=== PATIENT | male | born 1955 | race Caucasian/White ===

== ENCOUNTER → 2019-12-02 | Outpatient (CLI) | payer BC ==
--- NOTE | 2019-12-02 11:59 | CT ---
EXAMINATION TYPE: CT abdomen pelvis w con DATE OF EXAM: 12/02/2019 COMPARISON: None INDICATION: Sigmoid mass DLP: 1531.80 mGycm, Automated exposure control for dose reduction was used. CONTRAST: 100 ml mL of Isovue 300. Study performed with Oral Contrast TECHNIQUE: Axial images were obtained from above the diaphragm to the pubic rami in the axial plane a t 5 mm thick sections. Reconstructed images are reviewed on the computer in the coronal plane. FINDINGS: Limited CT sections are obtained the lung bases. The lung bases are clear. Small hiatal hernia is p resent. CT ABDOMEN: Liver: Normal Spleen: Normal Pancreas: Normal Adrenal glands: The adrenal glands are normal. Gallbladder: Normal Kidneys: No masses are evident. No hydronephrosis is present. No cysts are present. Delayed images were obtained through the kidneys, which remain unremarkable. Aorta: Normal Inferior vena cava: Normal. CT PELVIS: Loops of bowel within the abdomen visualized appear normal. Within the pelvis there is diffuse promin ent thickening through the mid sigmoid colon. Multiple diverticular changes are within the proximal s igmoid colon and descending colon. Fecal debris extends to the area of thickening. Underlying neoplas m should be considered. Significant inflammatory changes are not adjacent. Some mild adjacent inflamm atory change may be present superior to the sigmoid colon. Neoplasm is favored over diverticulitis. T here are loops of bowel which are incompletely distended or lack oral contrast limiting their evaluat ion. Appendix: Normal as visualized. Urinary bladder: Normal. Genitourinary structures: Prostate is moderately prominent. Osseous structures: Small sclerotic areas in the distal neck of the right femur. Sacroiliac joint deg enerative changes are present. Degenerative disc changes are within the lower lumbar spine. Facet deg enerative changes are in the lower lumbar spine. IMPRESSIONS: 1. Irregular moderate length segment of thickening of the proximal sigmoid colon with some minimal a djacent inflammatory change. Underlying neoplastic mass should be considered. Acute diverticulitis is considered less likely. A Yellow level critical message alert has been initiated for Giancarlo Conn MD~[id number] via the [employer] Critical Results System on 12/02/2019 11:56 AM. This message alert has been sent to Raul Conn MD~[id number] via the preferences provided by the clinician for the receipt of Radiology Criti iman Findings. Message ID [id number].
== END | disposition home or self-care (01) ==
LOC: RADCTMAIN 07:54
PROVIDERS: ATTEND Surgery
DX: K63.89 Other specified diseases of intestine (principal)
CPT/HCPCS: 74177; Q9967

== ENCOUNTER 2019-12-18 08:00 | Inpatient (IN) | payer BC ==
[2019-12-17 11:06] VITALS: BMI 28.2
[~2019-12-18 08:00] MED LIST: ACETAMINOPHEN TAB 500 MG TAB PO ONE; ALVIMOPAN 12 MG CAPSULE PO ONE; HEPARIN SODIUM,PORCINE 5,000 UNIT/ML 1 ML VIAL SQ ONE; ONDANSETRON 4 MG/2 ML VIAL IVP ONE; metroNIDAZOLE-NS PMX 500 MG in SALINE 1 100ML.BAG IVPB ONE
[2019-12-18] MEDS: LACTATED RINGERS 1,000 ML IV SCH (08:59)
[2019-12-18] MEDS ORDERED: LIDOCAINE 1% (10MG/ML) FOR IV START INTRADERMA ONE (08:59)
[2019-12-18] MEDS ORDERED: fentaNYL (PF) 50 MCG/ML 2 ML AMP IV ONE (09:19)
[2019-12-18] MEDS ORDERED: MIDAZOLAM 2 MG/2 ML VIAL IV ONE (09:19)
[2019-12-18] MEDS ORDERED: ATROPINE SULFATE 0.4 MG/ML 1 ML VIAL IV ONE (09:40)
[2019-12-18] MEDS ORDERED: DEXAMETHASONE SOD PHOSPHATE 10 MG/ML 1 ML VIAL IV ONE (09:50)
[2019-12-18] MEDS ORDERED: ePHEDrine SULFATE/0.9% NACL/PF 50 MG/5 ML SYRINGE IV ONE (10:11)
[2019-12-18] MEDS ORDERED: LIDOCAINE 1% INJ 10MG/ML (20 ML MDV) ONE (10:11)
[2019-12-18] MEDS ORDERED: NEOSTIGMINE 1 MG/ML 10 ML VIAL ONE (10:11)
[2019-12-18] MEDS ORDERED: ROCURONIUM BROMIDE 10 MG/ML 5 ML VIAL IV ONE (10:11)
[2019-12-18] MEDS ORDERED: fentaNYL (PF) 50 MCG/ML 2 ML AMP ONE (10:11)
[2019-12-18] MEDS ORDERED: GLYCOPYRROLATE 0.2 MG/ML 2 ML VIAL ONE (10:11)
[2019-12-18] MEDS ORDERED: MIDAZOLAM 2 MG/2 ML VIAL ONE (10:11)
[2019-12-18] MEDS ORDERED: PROPOFOL 10 MG/ML 20 ML VIAL IV ONE (10:11)
[2019-12-18] MEDS ORDERED: NALOXONE 0.4 MG/ML 1 ML VIAL IV PRN (10:16)
[2019-12-18] MEDS ORDERED: LACTATED RINGERS 1,000 ML IV ONE (11:41)
[2019-12-18] MEDS: ROPIVACAINE 250 MG, HYDROMORPHONE (PF) 5 MG in SODIUM CHLORIDE 0.9% 200 ML EPIDURAL PRN (13:36)
[2019-12-18] MEDS ORDERED: METOCLOPRAMIDE 5 MG/ML 2 ML VIAL IVP PRN (13:39)
[2019-12-18] MEDS ORDERED: HYDROmorphone 1 MG/ML 1 ML SYRINGE IVP PRN (13:39)
[2019-12-18] MEDS ORDERED: BENZOCAINE/MENTHOL LOZENG 1 EACH LOZENGE MUCOUS MEM PRN (13:39)
[2019-12-18] MEDS ORDERED: ONDANSETRON 4 MG/2 ML VIAL IVP PRN (13:39)
--- NOTE | 2019-12-18 13:45 | P.OP ---
Date of Procedure: 12/18/19 Procedure(s) Performed: PREOPERATIVE DIAGNOSIS: Sigmoid colon cancer POSTOPERATIVE DIAGNOSIS: Same PROCEDURE: Low anterior sigmoid resection SURGEON: Senia EBL: See anesthesia records ANESTHESIA: General COMPLICATIONS: None OPERATIVE PROCEDURE: Patient place in the operative table in the supine position. The patient was placed under general anesthesia. The patient was then placed in lithotomy. The abdomen was prepped and draped in usual sterile fashion. A vertical incision was made extending from the infraumbilical location to the suprapubic location. The fascia was divided as well. The Bookwalter retractor was utilized. The patient's tumor was clearly evident in the mid sigmoid colon. The tattooing was identified but the mass was easily palpable. It was loosely adherent to the pelvic sidewall and able to be mobilized with blunt dissection and a small amount of electrocautery. It was a dherent was to the posterior/inferior aspect of the left side of the bladder. No fistula was seen. The sigmoid colon was fully mobilized by incising the white line of Toldt. The left and right ureters were both identified and preserved. A site was chosen for division of the sigmoid colon proximally. A small colotomy was made distal to the anticipated resection site. The 29 EEA anvil was advanced into the lumen of the sigmoid colon and milked proximally. The bowel was then divided using a linear 75 stapler and the anvil was brought out adjacent to the staple line. A 3-0 silk pursestring suture was placed around the anvil at that location. The mesentery was divided using the LigaSure device and larger vessels were ligated using 0 silk ties. Dissection took place down to the proximal rectum where the tenia was noted to splay out. The proximal rectum was divided using the contour stapler. The specimen was passed off the field at that point. 2 small areas of bleeding along the staple line were controlled using 3-0 GI silk sutures. No signs of bleeding at either staple line was noted after irrigation. The stapler was then inserted into the anus and brought up to the staple line. The obturator was brought out just anterior to the staple line. The 2 portions of the stapler were connected to one another and subsequently tightened and fired. The bowel was clamped proxim al to the anastomosis. The rigid sigmoidoscope was utilized to fill the anastomotic site nicely with air. There was saline in the pelvis at this time. No evidence of leak was seen. The abdomen was irrigated with saline. The liver, stomach, visualized colon, and small bowel appeared normal. The midline fascia was then reapproximated using 2 separate double-stranded #1 PDS sutures. The subcutaneous tissues were closed using 3-0 Vicryl sutures. The skin was then closed using luz elena. Sterile dressings were then applied. DISPOSITION: Stable to recovery room
[2019-12-18] MEDS: HEPARIN SODIUM,PORCINE 5,000 UNIT/ML 1 ML VIAL SQ SCH ×2 (16:29→23:38)
[2019-12-18] MEDS: D5-0.45% NACL WITH KCL 20MEQ/L 1,000 ML IV SCH ×2 (16:50→23:38)
[2019-12-18 17:35] LABS: Basophils % (A) 0 %; Eosinophils # (A) 0.1 k/uL (0-0.7); Eosinophils % (A) 0 %; HCT 46.5 % (39.0-53.0); HGB 15.6 gm/dL (13.0-17.5); Lymphocytes # (A) 0.4 k/uL (1.0-4.8); Lymphocytes % (A) 3 %; MCH 27.2 pg (25.0-35.0); MCHC 33.7 g/dL (31.0-37.0); MCV 80.9 fL (80.0-100.0); Mean Platelet Volume 7.3; Monocytes # (A) 0.3 k/uL (0-1.0); Monocytes % (A) 2 %; Neutrophils # (A) 12.4 k/uL (1.3-7.7); Neutrophils % (A) 94 %; Platelet Count 255 k/uL (150-450); RBC 5.74 m/uL (4.30-5.90); RDW 13.5 % (11.5-15.5); WBC 13.2 k/uL (3.8-10.6)
[2019-12-18 17:42] LABS: African American GFR (CKD) >90 (>60 ml/min/1.73 sqM); Anion Gap 9 mmol/L; Blood Urea Nitrogen 7 mg/dL (9-20); Calcium 8.5 mg/dL (8.4-10.2); Carbon Dioxide 26 mmol/L (22-30); Chloride 101 mmol/L (98-107); Glucose 148 mg/dL (74-99); Non-African American GFR(CKD) >90 (>60 ml/min/1.73 sqM); Sodium 136 mmol/L (137-145)
[2019-12-18 20:43] LABS: HCT 45.5 % (39.0-53.0); HGB 15.2 gm/dL (13.0-17.5); MCHC 33.4 g/dL (31.0-37.0); MCV 80.9 fL (80.0-100.0); Mean Platelet Volume 7.5; Platelet Count 266 k/uL (150-450); RBC 5.63 m/uL (4.30-5.90); RDW 13.9 % (11.5-15.5); WBC 13.2 k/uL (3.8-10.6)
[2019-12-18] MEDS: FAMOTIDINE 20 MG/2 ML VIAL IV SCH (21:49)
[2019-12-19] MEDS: D5-0.45% NACL WITH KCL 20MEQ/L 1,000 ML IV SCH ×2 (07:55→15:21)
[2019-12-19] MEDS: FAMOTIDINE 20 MG/2 ML VIAL IV SCH ×2 (08:54→20:23)
[2019-12-19] MEDS: ALVIMOPAN 12 MG CAPSULE PO SCH ×2 (08:54→20:22)
[2019-12-19] MEDS: HEPARIN SODIUM,PORCINE 5,000 UNIT/ML 1 ML VIAL SQ SCH ×2 (08:54→15:23)
[2019-12-19] MEDS: LACTATED RINGERS 1,000 ML IV SCH (09:05)
--- NOTE | 2019-12-19 11:44 | ECHOF ---
Referral Reason:tachycardia MEASUREMENTS -------- HEIGHT: 182.9 cm WEIGHT: 97.5 kg BP: 154/78 RVIDd: 3.9 cm (< 3.3) IVSd: 1.1 cm (0.6 - 1.1) LVIDd: 5.2 cm (3.9 - 5.3) LVPWd: 1.3 cm (0.6 - 1.1) IVSs: 1.5 cm LVIDs: 3.5 cm LVPWs: 1.7 cm Ao Diam: 3.7 cm (2.0 - 3.7) AV Cusp: 2.5 cm (1.5 - 2.6) LA Diam: 4.5 cm (2.7 - 3.8) MV EXCURSION: 23.818 mm (> 18.000) MV EF SLOPE: 97 mm/s (70 - 150) EPSS: 0.4 cm MV E Carlos: 0.80 m/s MV DecT: 222 ms MV A Carlos: 0.88 m/s MV E/A Ratio: 0.91 RAP: 5.00 mmHg RVSP: 29.66 mmHg FINDINGS -------- Sinus rhythm. This was a technically good study. LV size, wall thickness and systolic function are normal, with an EF greater than 55%. The left faith tricular size is normal. The diastolic filling pattern is normal for the age of the patient 11.59. The right ventricle is normal in size. The left atrium is mildly dilated. The right atrial size is normal. The aortic valve is trileaflet, and appears structurally normal. No aortic stenosis or regurgitation. Mild mitral annular calcification present. Mild mitral regurgitation is present. Mild tricuspid regurgitation present. Right ventricular systolic pressure is normal at < 35 mmHg. There is no evidence of pulmonary hypertension. The pulmonic valve was not well visualized. The aortic root size is normal. There is no pericardial effusion. CONCLUSIONS -------- 1. Sinus rhythm. 2. This was a technically good study. 3. LV size, wall thickness and systolic function are normal, with an EF greater than 55%. 4. The left ventricular size is normal. 5. The diastolic filling pattern is normal for the age of the patient 11.59 6. The right ventricle is normal in size. 7. The left atrium is mildly dilated. 8. The right atrial size is normal. 9. The aortic valve is trileaflet, and appears structurally normal. No aortic stenosis or regurgitati on. 10. Mild mitral annular calcification present. 11. Mild mitral regurgitation is present. 12. Mild tricuspid regurgitation present. 13. Right ventricular systolic pressure is normal at < 35 mmHg. 14. There is no evidence of pulmonary hypertension. 15. The pulmonic valve was not well visualized. 16. The aortic root size is normal. 17. There is no pericardial effusion. POLYGRAPH OPERATOR: Rody Membreno RDCS
--- NOTE | 2019-12-19 12:20 | CONS ---
CONSULTATION CHIEF COMPLAINT: Tachycardia. This is a 64-year-old gentleman who was electively brought into hospital for colectomy secondary to colon cancer. In the postoperative setting patient developed sinus tachycardia, for which Cardiology has been consulted. There is no prior cardiac history. There is no history of coronary artery disease or congestive heart failure. Patient is fairly active physically and has not had any issues prior to surgery. At the time of my evaluation, his heart rate is normal and he does not have any cardiac symptoms. I am told that the patient's surgery went uneventfully and the patient has had epidural for several hours and after that developed tachycardia. Heart rates were in the 120s. I reviewed the rhythm strips. It seems to be sinus tachycardia. I do not have any EKG on him. His labs show that the hemoglobin is normal. Potassium is 4. Creatinine is 0.59 and BUN is 7. There is no evidence of anemia or intravascular volume depletion. The sinus tachycardia could be related to the epidural if he has had vasodilation, and in the absence of hypotension it is difficult to explain sinus tachycardia. Patient's oxygenation has been good. I am going to obtain an EKG on him and an echocardiogram, and if the wall motion is good, LV function is good, he does not require any further evaluation at this time. We may consider doing a stress test on him down the road. PAST MEDICAL HISTORY: Past medical history is negative for diabetes, hypertension, dyslipidemia. MEDICATIONS: He is not on any prescription medication. ALLERGIES: DAIRY PRODUCTS. FAMILY HISTORY: Significant for colon cancer in his father. His mother lives into 90s. REVIEW OF SYSTEMS: HEENT is unremarkable. CARDIAC: As described above. RESPIRATORY: Negative. GI: Significant for colon cancer, status post surgery. PSYCHOSOCIAL: Negative. ENDOCRINE: Negative. DERMATOLOGY: Negative. CONSTITUTIONAL: Negative. ONCOLOGICAL: Negative. SOD CUTTER: Negative. PHYSICAL EXAMINATION: Patient is comfortable at rest. Heart rate is 74 beats per minute, blood pressure 154/78, respiratory rate 18. Chest exam reveals good air entry bilaterally. Heart exam reveals first and second heart sounds. No gallop. No murmur. Abdomen is soft, status post surgery. Examination of extremities did not reveal any edema. Peripheral pulses are felt. ASSESSMENT: Sinus tachycardia of unclear etiology. I am going to obtain an EKG and echocardiogram. It could be related to the anesthesia. It could be related to the postoperative pain. If the echo looks normal, no further workup at this time. Thank you for giving me the privilege of participating in the care of this nice gentleman. MARIA L / ROBINSONN: [id number] /
--- NOTE | 2019-12-19 13:30 | P.CONS ---
History of Present Illness - Reason for Consult Consult date: 12/19/19 Medical management Requesting physician: Giancarlo Conn - Chief Complaint Elective large bowel resection for colon cancer - History of Present Illness 64-year-old male awake alert oriented 3 status post low anterior resection for sigmoid colon cancer On exam patient is up in the chair tolerating diet watching TV, using incentive spirometer as recommended Incision is clean and dry , op note suggests no gross evidence of metastasis waiting on the final pathology Review of Systems Constitutional: Reports as per HPI Ears, nose, mouth and throat: Reports as per HPI Cardiovascular: Reports as per HPI Respiratory: Reports as per HPI Gastrointestinal: Reports as per HPI (Bowel resection secondary to known family history father at 40 secondary to colon cance sister had a resection secondary to colon cancer), Reports diarrhea Genitourinary: Reports as per HPI Musculoskeletal: Reports as per HPI Musculoskeletal: right: foot swelling Integumentary: Reports as per HPI Neurological: Reports as per HPI Psychiatric: Reports as per HPI Past Medical History Past Medical History: Cancer Additional Past Medical History / Comment(s): COLON CANCER, VEGETARIAN DIET, STATES CONSTIPATION IN THE PAST WITH PAIN MEDICATION., MONITORS THYROID ., ELEVATED PSA. Patient had been doing regular colostomy screening with known family history of colon cancer father and sister History of Any Multi-Drug Resistant Organisms: None Reported Past Surgical History: Hernia Repair Additional Past Surgical History / Comment(s): DOUBLE INGUINAL HERNIA (2011) Past Anesthesia/Blood Transfusion Reactions: No Reported Reaction Past Psychological History: No Psychological Hx Reported Smoking Status: Never smoker Past Alcohol Use History: None Reported Past Drug Use History: None Reported - Past Family History Father Family Medical History: Cancer Additional Family Medical History / Comment(s): FROM COLON CANCER AT AGE 49. Medications and Allergies Home Medications Medication Instructions Recorded Confirmed Type Ascorbic Acid [Vitamin C] 500 mg PO DAILY 12/17/19 12/18/19 History Calcium Lactate 2 tab PO DAILY 12/17/19 12/18/19 History Chondroitin Sulfate 250 mg PO BID 12/17/19 12/18/19 History Fucothin Seaweed Supplement 1 tab PO DAILY 12/17/19 12/18/19 History L.acidoph,Paracasei, B.lactis 1 each PO DAILY 12/17/19 12/18/19 History [Probiotic] Liquid Vitamin C Pack 1,000 mg PO DAILY 12/17/19 12/18/19 History Magnesium Pot Asp. Taurine 1 tab PO DAILY 12/17/19 12/18/19 History Multivit-Min/FA/Lycopen/Lutein 1 each PO DAILY 12/17/19 12/18/19 History [Centrum Silver Men Tablet] Zinc Aspartate 1 tab PO DAILY 12/17/19 12/18/19 History Allergies Allergy/AdvReac Type Severity Reaction Status Date / Time Milk Containing Products Allergy Unknown Sinus Verified 12/18/19 08:34 [Dairy] Congestion, Difficulty Breathing Physical Exam Osteopathic Statement: *. No significant issues noted on an osteopathic structural exam other than those noted in the History and Physical/Consult. Vitals: Vital Signs Temp Pulse Resp BP Pulse Ox 12/19/19 07:42 97.7 F 74 20 154/78 96 12/19/19 03:52 18 12/19/19 01:40 98.3 F 103 H 18 130/73 94 L 12/18/19 23:38 18 12/18/19 19:10 98 F 116 H 18 145/81 95 12/18/19 18:00 120 H 142/86 94 L 12/18/19 17:45 122 H 168/103 96 12/18/19 17:30 113 H 158/80 12/18/19 17:15 112 H 144/80 93 L 12/18/19 17:00 109 H 150/75 94 L 12/18/19 16:45 109 H 156/83 94 L 12/18/19 16:30 107 H 154/90 94 L 12/18/19 16:15 108 H 149/78 95 12/18/19 16:00 98.1 F 102 H 18 148/83 95 12/18/19 15:30 96 16 133/97 96 12/18/19 15:00 100 16 132/90 95 12/18/19 14:30 90 16 147/75 94 L 12/18/19 14:02 84 16 140/78 92 L 12/18/19 13:47 86 16 142/75 97 12/18/19 13:32 86 16 141/79 96 12/18/19 13:17 97.9 F 72 16 144/78 100 Intake and Output 12/18/19 12/19/19 12/19/19 22:59 06:59 14:59 Output Total 3000 1560 Balance -3000 -1560 Output: Urine 3000 1560 Uretheral (Pappas) 1560 Other: Voiding Method Indwelling Catheter Indwelling Catheter Indwelling Catheter Weight 97.9 kg General: [Patient awake, alert and oriented times 3. Patient in no acute distress.] HEENT: [PERRL. EOMI. No pharyngeal erythema or exudate.] Neck: [No adenopathy.] Cardiac: [Heart regular in rate and rhythm. No S3. No S4. No clicks, rubs. No murmur.] Lungs: [Clear to auscultation bilaterally.] Abdomen: [No mass. No organomegaly. Bowel sounds presnt and normoactive in all 4 quadrants. abdominal laparotomy incision clean and dry Extremes: [No edema no cyanosis no claudication normal pulses] : Normal male genitalia Musculoskeletal: [No joint erythema, edema or tenderness.] Skin: [No rash.] Neurologic: [No lateralizing deficits. CN II - XII grossly intact.] Lymphatic: [No adenopathy.] Results CBC & Chem 7: 12/18/19 19:58 12/18/19 16:57 Labs: Abnormal Lab Results - Last 24 Hours (Table) 12/18/19 12/18/19 12/18/19 Range/Units 16:57 16:57 19:58 WBC 13.2 H 13.2 H (3.8-10.6) k/uL Neutrophils # 12.4 H (1.3-7.7) k/uL Lymphocytes # 0.4 L (1.0-4.8) k/uL Sodium 136 L (137-145) mmol/L BUN 7 L (9-20) mg/dL Creatinine 0.59 L (0.66-1.25) mg/dL Glucose 148 H (74-99) mg/dL Assessment and Plan (1) Cancer of sigmoid colon Current Visit: Yes Status: Acute Code(s): C18.7 - MALIGNANT NEOPLASM OF SIGMOID COLON SNOMED Code(s): 299405146 Plan: Postoperative day one Status post low anterior resection of sigmoid colon secondary to colon cancer Patient is up in chair doing very well Epidural in place, Pappas in place We will reevaluate in the morning Time with Patient: Greater than 30
--- NOTE | 2019-12-19 14:15 | PN ---
PROGRESS NOTE CHIEF COMPLAINT: Sigmoid cancer. SUBJECTIVE: The patient was tachycardic postoperatively yesterday evening. EKG showed some changes. Spoke with Cardiology. They are not overly concerned. Echo is pending for this morning. His tachycardia has improved. No labs from today; however, he had CBC done twice yesterday showing mild leukocytosis with a stable hemoglobin. Urine output is clear and adequate in volume. Denies pain. Epidural running at 6. OBJECTIVE: ABDOMEN: Soft, nondistended. Mild tenderness. Dressing clean and dry. ASSESSMENT: [id number]-old male post low anterior resection for sigmoid colon cancer. PLAN: 1. Keep him on clear liquid, but will advance diet tomorrow. 2. Increase activity today. 3. Await echocardiogram. 4. Recheck labs tomorrow. MMODL / IJN: [id number] /
[2019-12-19] MEDS: ROPIVACAINE 250 MG, HYDROMORPHONE (PF) 5 MG in SODIUM CHLORIDE 0.9% 200 ML EPIDURAL PRN (16:27)
--- NOTE | 2019-12-19 16:36 | P.PN ---
Progress Note - Text Progress Note Date: 12/19/19 POD 1 from colectomy. He is doing very well. I was asked to the see the patient yesterday evening for tachycardia. patient was asymptomatic and had HR of 100 at the time, no mental status changes with the infusion at 8cc/hr. Pain was 1/10, non tender to palpation over the abdomen. Today, awake, alert, ambulating, no lower ext pain or weakness. site is clear and dry. able to urinate. pain 1/10. continue catheter until saturday. solution running at 6cc/hr
[2019-12-20] MEDS: HEPARIN SODIUM,PORCINE 5,000 UNIT/ML 1 ML VIAL SQ SCH ×4 (00:10→22:51)
[2019-12-20] MEDS: LACTATED RINGERS 1,000 ML IV SCH (00:11)
[2019-12-20] MEDS: D5-0.45% NACL WITH KCL 20MEQ/L 1,000 ML IV SCH ×3 (00:11→15:25)
--- NOTE | 2019-12-20 06:44 | P.PN ---
Progress Note - Text Progress Note Date: 12/20/19 POD 2, cath day 3 from colectomy. Doing well, no pain at rest, 3/10 with movement in the abdomen. No lower ext weakness, able to ambulate. no altered mental status or pruritis. continue catheter until tomorro if he is in patient. continue at 6cc/hr anesthesia with questions please.
[2019-12-20 07:19] LABS: Basophils % (A) 0 %; Eosinophils # (A) 0.1 k/uL (0-0.7); Eosinophils % (A) 2 %; HGB 15.4 gm/dL (13.0-17.5); Lymphocytes # (A) 2.1 k/uL (1.0-4.8); Lymphocytes % (A) 23 %; MCH 26.6 pg (25.0-35.0); MCHC 32.1 g/dL (31.0-37.0); MCV 82.8 fL (80.0-100.0); Mean Platelet Volume 7.3; Monocytes # (A) 0.7 k/uL (0-1.0); Monocytes % (A) 7 %; Neutrophils % (A) 66 %; Platelet Count 238 k/uL (150-450); RDW 14.1 % (11.5-15.5); WBC 9.1 k/uL (3.8-10.6)
[2019-12-20 07:32] LABS: African American GFR (CKD) >90 (>60 ml/min/1.73 sqM); Anion Gap 7 mmol/L; Blood Urea Nitrogen 6 mg/dL (9-20); Calcium 8.9 mg/dL (8.4-10.2); Carbon Dioxide 28 mmol/L (22-30); Chloride 104 mmol/L (98-107); Glucose 114 mg/dL (74-99); Non-African American GFR(CKD) >90 (>60 ml/min/1.73 sqM); Potassium 4.7 mmol/L (3.5-5.1); Sodium 139 mmol/L (137-145)
[2019-12-20] MEDS: ALVIMOPAN 12 MG CAPSULE PO SCH ×2 (08:02→20:32)
--- NOTE | 2019-12-20 10:20 | P.PN ---
Subjective Progress Note Date: 12/20/19 Principal diagnosis: Sigmoid colon cancer Patient doing fairly well today. Mildly bloated compared to yesterday. No flatus or bowel movement. Denies nausea or vomiting. He has been drinking approximately 60 ounces of liquids per day. Describe some cramps when he is given his Pepcid. He would like the Pepcid discontinued. Good urine output. White blood cell count normal with hemoglobin stable at 15.4. Objective - Vital Signs Vital signs: Vital Signs Temp 98.3 F 12/20/19 07:00 Pulse 78 12/20/19 07:00 Resp 20 12/20/19 07:00 BP 145/85 12/20/19 07:00 Pulse Ox 96 12/20/19 07:00 Intake & Output 12/19/19 12/20/19 12/20/19 18:59 06:59 18:59 Intake Total 400 Output Total 4400 3800 840 Balance -4400 -3400 -840 Intake: Oral 400 Output: Urine 4400 3800 840 Uretheral (Pappas) 4400 840 Other: Voiding Method Indwelling Catheter Indwelling Catheter Indwelling Catheter # Voids 1 - Exam Abdomen: Soft, mildly distended, dressing clean and dry, minimal tenderness - Labs CBC & Chem 7: 12/20/19 06:54 12/20/19 06:54 Labs: Abnormal Lab Results - Last 24 Hours (Table) 12/20/19 Range/Units 06:54 BUN 6 L (9-20) mg/dL Glucose 114 H (74-99) mg/dL Assessment and Plan (1) Cancer of sigmoid colon Narrative/Plan: Patient overall doing fairly well. I do think he is slightly distended today. Will continue on liquids only. Patient discouraged from drinking quite as much as he had been. Ambulate. Plan on removing Pappas and epidural tomorrow. Decrease IV fluid rate today to 75 mL per hour. We'll discontinue Pepcid as well. Continue Entereg. Will call the patient's by phone with an update. Current Visit: Yes Status: Acute Code(s): C18.7 - MALIGNANT NEOPLASM OF S IGMOID COLON SNOMED Code(s): 259600066
[2019-12-20] MEDS: FAMOTIDINE 20 MG/2 ML VIAL IV SCH (10:25)
--- NOTE | 2019-12-20 11:39 | CONS ---
CONSULTATION This is a 64-year-old gentleman that we were consulted due to tachycardia. This morning, patient is doing well, free of symptoms. Heart rate is 78 beats per minute. Blood pressure is 140/85, respiratory rate 18. Chest exam reveals good air entry bilaterally. Heart exam reveals first and second heart sounds. No gallop. Exam of extremities did not reveal any edema. Peripheral pulses are felt. The patient had an echocardiogram and that showed normal LV systolic function without any evidence of significant wall motion abnormalities or valvular heart disease. ASSESSMENT: Sinus tachycardia, probably related to the perioperative state, anesthesia or other medication. He is doing well. Echo looks normal. No further cardiac workup at this time. We will see him on an as-needed basis. I advised him to follow up with me after discharge and I might consider doing a stress test on him. MMODL / IJN: [id number] /
--- NOTE | 2019-12-20 12:10 | P.PN ---
Subjective Progress Note Date: 12/20/19 Principal diagnosis: Elective large bowel resection colon cancer 64-year-old patient status post postop day 2 anterior resection for colon cancer Patient is alert and oriented 3, sitting up in chair, resting comfortably. Has no complaints at this time, pain is controlled epidural and is up ambulating through the hallway as of this morning. Utilizing his incentive spirometry routine basis. Incision is clean and dry, mild tenderness to the abdomen with palpation. Per surgery note we'll keep Pappas catheter and epidural until tomorrow. Objective - Vital Signs Vital signs: Vital Signs Temp 98.3 F 12/20/19 07:00 Pulse 78 12/20/19 07:00 Resp 20 12/20/19 07:00 BP 145/85 12/20/19 07:00 Pulse Ox 96 12/20/19 07:00 Intake & Output 12/19/19 12/20/19 12/20/19 18:59 06:59 18:59 Intake Total 400 Output Total 4400 3800 840 Balance -4400 -3400 -840 Intake: Oral 400 Output: Urine 4400 3800 840 Uretheral (Pappas) 4400 840 Other: Voiding Method Indwelling Catheter Indwelling Catheter Indwelling Catheter # Voids 1 - Exam GENERAL: Well-appearing, well-nourished and in no acute distress. HEAD: Atraumatic, normocephalic. EYES: Pupils equal round and reactive to light, extraocular movements intact, s clera anicteric, conjunctiva are normal. ENT:nares patent, oropharynx clear without exudates. Moist mucous membranes. NECK: Normal range of motion, supple without lymphadenopathy or JVD, no thyromegaly LUNGS: Breath sounds clear to auscultation bilaterally and equal. No wheezes rales or rhonchi. HEART: Regular rate and rhythm without murmurs, rubs or gallops.S1S2 Normal ABDOMEN: Soft, mildly tender to palpation, normoactive bowel sounds. No guarding, no rebound. No masses appreciated. EXTREMITIES: Normal range of motion, no pitting or edema. No clubbing or cyanosis. NEUROLOGICAL: Cranial nerves II through XII grossly intact. Normal speech, normal gait. PSYCH: Normal mood, normal affect. SKIN: Warm, Dry, normal turgor, no rashes or lesions noted. - Labs CBC & Chem 7: 12/20/19 06:54 12/20/19 06:54 Labs: Abnormal Lab Results - Last 24 Hours (Table) 12/20/19 Range/Units 06:54 BUN 6 L (9-20) mg/dL Glucose 114 H (74-99) mg/dL Assessment and Plan (1) Cancer of sigmoid colon Current Visit: Yes Status: Acute Code(s): C18.7 - MALIGNANT NEOPLASM OF SIGMOID COLON SNOMED Code(s): 793139690 Plan: Patient status postoperative day 2 for anterior resection of sigmoid colon Patient up in chair resting comfortably Continue ambulation and incentive spirometry Pappas catheter and epidural be reevaluated tomorrow Time with Patient: Greater than 30
[2019-12-21] MEDS: LACTATED RINGERS 1,000 ML IV SCH (02:08)
[2019-12-21] MEDS: D5-0.45% NACL WITH KCL 20MEQ/L 1,000 ML IV SCH ×2 (02:08→15:25)
[2019-12-21] MEDS: HEPARIN SODIUM,PORCINE 5,000 UNIT/ML 1 ML VIAL SQ SCH ×2 (07:39→15:25)
[2019-12-21] MEDS: ALVIMOPAN 12 MG CAPSULE PO SCH ×2 (07:39→20:03)
[2019-12-21] MEDS ORDERED: HYDROcodone/APAP 5-325MG 1 EACH TAB PO PRN (09:42)
[2019-12-21] MEDS ORDERED: ACETAMINOPHEN TAB 325 MG TAB PO PRN (10:19)
--- NOTE | 2019-12-21 10:20 | P.PN ---
<Emilee Dexter Rosa - Last Filed: 12/21/19 10:16> Subjective Progress Note Date: 12/21/19 CHIEF COMPLAINT: Sigmoid colon cancer HISTORY OF PRESENT ILLNESS: 64-year-old male who is status post low anterior sigmoid resection. Postoperative day #3. Patient examined this morning the bedside. Patient's epidural and Pappas catheter were discontinued overnight. He denies pain at this time. He has been voiding this morning without difficulty. He reports improvement in abdominal bloating. Tolerating full liquid diet. He is passing flatus. He reports a very small amount of clear drainage with some blood from his rectum, but no bowel movement thus far. Vitals stable. He is a febrile. PHYSICAL EXAM: VITAL SIGNS: Reviewed. GENERAL: Well-developed in no acute distress. HEENT: No sclera icterus. Extraocular movements grossly intact. Moist buccal mucosa. Head is atraumatic, normocephalic. ABDOMEN: Soft. Nondistended. Nontender. Dressing clean dry and intact. Abdominal binder noted. NEUROLOGIC: Alert and oriented. Cranial nerves II through XII grossly intact. ASSESSMENT: 1. Sigmoid colon cancer PLAN: -Continue full liquid diet. Await bowel movement -Pain control. Will add Tylenol and [place] when necessary -Incentive spirometry -Increase activity as tolerated Nurse practitioner note has been reviewed by physician. Signing provider agrees with the documented findings, assessment, and plan of care. Objective - Vital Signs Vital signs: Vital Signs Temp 98.7 F 12/21/19 07:00 Pulse 85 12/21/19 08:00 Resp 16 12/21/19 08:00 BP 146/81 12/21/19 07:00 Pulse Ox 97 12/21/19 07:00 Intake & Output 12/20/19 12/21/19 12/21/19 18:59 06:59 18:59 Intake Total 600 1520 Output Total 840 1800 Balance -240 -280 Intake: IV 600 D5-0.45% NaCl with KCl 600 20Meq/l 1,000 ml @ 75 mls /hr IV .[id number] [facility] Rx#: [id number] Intake, IV Titration 900 Amount D5-0.45% NaCl with KCl 900 20Meq/l 1,000 ml @ 75 mls /hr IV .[id number] [facility] Rx#: [id number] Oral 620 Output: Urine 840 1800 Uretheral (Pappas) 840 1800 Other: Voiding Method Indwelling Catheter Indwelling Catheter Toilet - Labs CBC & Chem 7: 12/20/19 06:54 12/20/19 06:54 <Giancarlo Conn - Last Filed: 12/21/19 14:25> Subjective As above. Patient doing well today. Passing flatus. No bloating or nausea. Will advance diet. Ambulate. Hopefully discharge tomorrow. Objective - Vital Signs Vital signs: Vital Signs Temp 98.7 F 12/21/19 07:00 Pulse 85 12/21/19 08:00 Resp 16 12/21/19 08:00 BP 146/81 12/21/19 07:00 Pulse Ox 97 12/21/19 07:00 Intake & Output 12/20/19 12/21/19 12/21/19 18:59 06:59 18:59 Intake Total 600 1520 Output Total 840 1800 Balance -240 -280 Intake: IV 600 D5-0.45% NaCl with KCl 600 20Meq/l 1,000 ml @ 75 mls /hr IV .[id number] [facility] Rx#: [id number] Intake, IV Titration 900 Amount D5-0.45% NaCl with KCl 900 20Meq/l 1,000 ml @ 75 mls /hr IV .[id number] [facility] Rx#: [id number] Oral 620 Output: Urine 840 1800 Uretheral (Pappas) 840 1800 Other: Voiding Method Indwelling Catheter Indwelling Catheter Toilet - Labs CBC & Chem 7: 12/20/19 06:54 12/20/19 06:54 Assessment and Plan (1) Cancer of sigmoid colon Current Visit: Yes Status: Acute Code(s): C18.7 - MALIGNANT NEOPLASM OF SIGMOID COLON SNOMED Code(s): 810609478
[2019-12-21 14:47] VITALS: RESP 18
--- NOTE | 2019-12-21 16:28 | P.PN ---
Subjective Progress Note Date: 12/21/19 this is 64-year-old gentleman status post low anterior sigmoid resection secondary to sigmoid colon cancer.Pappas catheter taken out yesterday with sufficient spontaneous urine output without difficulty.epidural discontinued last night, reports no pain currently. Passing flatus, no bowel movement. Incentive spirometer up to 1500. Recently advanced to full liquid diet. Denies nausea or vomiting.afebrile.denies chest pain, palpitations or shortness of breath. Denies lightheadedness, dizziness or focal deficits. Objective - Vital Signs Vital signs: Vital Signs Temp 98.3 F 12/21/19 14:47 Pulse 94 12/21/19 14:47 Resp 18 12/21/19 14:47 BP 136/81 12/21/19 14:47 Pulse Ox 96 12/21/19 14:47 Intake & Output 12/20/19 12/21/19 12/21/19 18:59 06:59 18:59 Intake Total 600 1520 75 Output Total 840 1800 Balance -240 -280 75 Intake: IV 600 D5-0.45% NaCl with KCl 600 20Meq/l 1,000 ml @ 75 mls /hr IV .[id number] [facility] Rx#: [id number] Intake, IV Titration 900 75 Amount D5-0.45% NaCl with KCl 900 75 20Meq/l 1,000 ml @ 75 mls /hr IV .[id number] [facility] Rx#: [id number] Oral 620 Output: Urine 840 1800 Uretheral (Pappas) 840 1800 Other: Voiding Method Indwelling Catheter Indwelling Catheter Toilet - Exam PHYSICAL EXAM: VITAL SIGNS: [as above] GENERAL: sitting up in bed, no acute distress HEENT: Conjunctivae normal. eyes normal. oral mucosa moist NECK: No JVD. No thyroid enlargement. No LNs CARDIOVASCULAR: S1, S2 regular.. No murmur RESPIRATION: Breath sounds diminished in the bases. No rhonchi or crackles. No wheezing ABDOMEN: Soft,nondistended, status post surgery. dressing clean dry and intact/abdominal binder present.Bowel sounds heard. LEGS: No edema. no swelling PSYCHIATRY: Alert and oriented X3, mood and affect normal. NERVOUS SYSTEM: Cranial N 2-12 grossly normal. Moves all 4 limbs. No focal deficits. Strength and sensation grossly intact.. Skin: no rash - Labs CBC & Chem 7: 03/15/20 06:54 12/20/19 06:54 Assessment and Plan Assessment: low anterior sigmoid resection secondary to sigmoid colon cancer family history of colon CA plan: Continue on current medication regime ,monitoring and symptomatic treatment. Pain management/diet advancement as per surgery. Increase ambulation as tolerated. Aggressive pulmonary toileting with incentive spirometer reinforced.further recommendations to follow. The impression and plan of care has been dictated as directed. : I performed a history and examination of this patient, discussed the same with the dictator. I agree with the dictator's note ,documented as a scribe. Any additional findings or plans will be noted.
[2019-12-21] MEDS: KETOROLAC 30 MG/ML 1 ML VIAL IVP SCH (18:02)
[2019-12-22] MEDS: KETOROLAC 30 MG/ML 1 ML VIAL IVP SCH ×2 (00:37→03:45)
[2019-12-22] MEDS: HEPARIN SODIUM,PORCINE 5,000 UNIT/ML 1 ML VIAL SQ SCH ×2 (00:38→08:08)
[2019-12-22] MEDS: LACTATED RINGERS 1,000 ML IV SCH (03:44)
[2019-12-22] MEDS: ALVIMOPAN 12 MG CAPSULE PO SCH (08:08)
--- NOTE | 2019-12-22 11:02 | P.PN ---
<Emilee Dexter - Last Filed: 12/22/19 11:00> Subjective Progress Note Date: 12/22/19 CHIEF COMPLAINT: Sigmoid colon cancer HISTORY OF PRESENT ILLNESS: 64-year-old male who is status post low anterior sigmoid resection. Postoperative day #4. Patient examined this morning the bedside. Patients pain is tolerable. Tolerating diet. Denies nausea or vomiting. Pasing flatus. No bowel movement thus far. Vitals stable. He is afebrile. PHYSICAL EXAM: VITAL SIGNS: Reviewed. GENERAL: Well-developed in no acute distress. HEENT: No sclera icterus. Extraocular movements grossly intact. Moist buccal mucosa. Head is atraumatic, normocephalic. ABDOMEN: Soft. Nondistended. Nontender. Dressing clean dry and intact. NEUROLOGIC: Alert and oriented. Cranial nerves II through XII grossly intact. ASSESSMENT: 1. Sigmoid colon cancer PLAN: -Continue current diet. Await bowel movement -Pain control -Incentive spirometry -Increase activity as tolerated -Possible discharge home this afternoon after patient is re-evaluated by Dr. Conn Nurse practitioner note has been reviewed by physician. Signing provider agrees with the documented findings, assessment, and plan of care. Objective - Vital Signs Vital signs: Vital Signs Temp 98.7 F 12/22/19 07:00 Pulse 103 H 12/22/19 08:00 Resp 18 12/22/19 08:00 BP 145/84 12/22/19 07:00 Pulse Ox 95 12/22/19 07:00 Intake & Output 12/21/19 12/22/19 12/22/19 18:59 06:59 18:59 Intake Total 75 Balance 75 Intake: Intake, IV Titration 75 Amount D5-0.45% NaCl with KCl 75 20Meq/l 1,000 ml @ 75 mls /hr IV .[id number] [facility] Rx#: [id number] Other: Voiding Method Toilet Toilet Toilet # Voids 1 - Labs CBC & Chem 7: 12/20/19 06:54 12/20/19 06:54 <Giancarlo Conn - Last Filed: 12/22/19 15:36> Objective - Vital Signs Vital signs: Vital Signs Temp 98.7 F 12/22/19 07:00 Pulse 84 12/22/19 15:24 Resp 18 12/22/19 08:00 BP 145/84 12/22/19 07:00 Pulse Ox 95 12/22/19 07:00 Intake & Output 12/21/19 12/22/19 12/22/19 18:59 06:59 18:59 Intake Total 75 Balance 75 Intake: Intake, IV Titration 75 Amount D5-0.45% NaCl with KCl 75 20Meq/l 1,000 ml @ 75 mls /hr IV .[id number] [facility] Rx#: [id number] Other: Voiding Method Toilet Toilet Toilet # Voids 1 3 # Bowel Movements 1 - Labs CBC & Chem 7: 12/20/19 06:54 12/20/19 06:54 Assessment and Plan (1) Cancer of sigmoid colon Current Visit: Yes Status: Acute Code(s): C18.7 - MALIGNANT NEOPLASM OF SIGMOID COLON SNOMED Code(s): 825383682
--- NOTE | 2019-12-22 15:37 | P.DS ---
Providers Date of admission: 12/18/19 08:13 Expected date of discharge: 12/22/19 Attending physician: Giancarlo Conn Consults: 12/18/19 13:39 Consult Physician Routine Consulting Provider: William Vasquez Consult Reason/Comments: Medical management Do you want consulting provider notified?: Yes 12/18/19 20:56 Consult Physician Stat Consulting Provider: Shane Chery Consult Reason/Comments: Abnomal EKG Do you want consulting provider notified?: Yes Primary care physician: William Vasquez - Discharge Diagnosis(es) (1) Cancer of sigmoid colon Patient admitted for elective sigmoid resection for malignancy. Underwent low anterior resection and has done well. Patient is anxious to go home today. Heart rate earlier was 10 3 repeat after he was ambulating to the bathroom was 108 however he says he feels normal. Not taking any pain medications. Had both flatus and bowel movements today. No nausea or vomiting. Denies bloating. No fevers. Last white blood cell count normal. Pulse was checked by myself and it is currently 84. Abdomen soft, nondistended, nontender, dressing clean and dry. We'll change abdominal dressing. Will plan discharge today. Tylenol and Motrin for pain. Follow-up one week. Continue low fiber diet. Current Visit: Yes Status: Acute Plan - Discharge Summary Discharge Rx Participant: No New Discharge Prescriptions: New Hydrocodone/Acetaminophen [[place] 5-325] 1 tab PO Q6HR PRN #10 tab PRN Reason: Pain No Action Multivit-Min/FA/Lycopen/Lutein [Centrum Silver Men Tablet] 1 each PO DAILY L.acidoph,Paracasei, B.lactis [Probiotic] 1 each PO DAILY Ascorbic Acid [Vitamin C] 500 mg PO DAILY Calcium Lactate 2 tab PO DAILY Zinc Aspartate 1 tab PO DAILY Chondroitin Sulfate 250 mg PO BID Liquid Vitamin C Pack 1,000 mg PO DAILY Magnesium Pot Asp. Taurine 1 tab PO DAILY Fucothin Seaweed Supplement 1 tab PO DAILY Discharge Medication List Ascorbic Acid [Vitamin C] 500 mg PO DAILY 12/17/19 [History] Calcium Lactate 2 tab PO DAILY 12/17/19 [History] Chondroitin Sulfate 250 mg PO BID 12/17/19 [History] Fucothin Seaweed Supplement 1 tab PO DAILY 12/17/19 [History] L.acidoph,Paracasei, B.lactis [Probiotic] 1 each PO DAILY 12/17/19 [History] Liquid Vitamin C Pack 1,000 mg PO DAILY 12/17/19 [History] Magnesium Pot Asp. Taurine 1 tab PO DAILY 12/17/19 [History] Multivit-Min/FA/Lycopen/Lutein [Centrum Silver Men Tablet] 1 each PO DAILY 12/17/19 [History] Zinc Aspartate 1 tab PO DAILY 12/17/19 [History] Hydrocodone/Acetaminophen [[place] 5-325] 1 tab PO Q6HR PRN #10 tab 12/21/19 [Rx] Follow up Appointment(s)/Referral(s): Giancarlo Conn MD [Medical Doctor] - 1 Week Activity/Diet/Wound Care/Special Instructions: No driving while taking [place] No lifting over 10 pounds You may shower. No soaking or tub baths Very light activity until you are reevaluated at your follow up appointment with your surgeon
[2019-12-22 16:09] VITALS: BP 139/83; PULSE 108; TEMP 97.7
== END 2019-12-22 16:52 | disposition home or self-care (01) | DRG 331 ==
LOC: EDSTATUS 08:00 → 2ORMAIN 08:13 → 4SSUR 15:26
PROVIDERS: ADMIT Surgery; ATTEND Surgery
PROC: 0DTN0ZZ Resection of Sigmoid Colon, Open Approach (ICD-10-PCS; principal; 2019-12-18 09:45)
DX: C18.7 Malignant neoplasm of sigmoid colon (principal); D72.829 Elevated white blood cell count, unspecified; R00.0 Tachycardia, unspecified; T41.0X5A Adverse effect of inhaled anesthetics, initial encounter; T50.905A Adverse effect of unspecified drugs, medicaments and biological substances, initial encounter; R14.0 Abdominal distension (gaseous); Z86.010 Personal history of colon polyps; Z91.011 Allergy to milk products; Z80.0 Family history of malignant neoplasm of digestive organs
CPT/HCPCS: 80048; 85025; 85027; 86850; 86900; 86901; 88309; 93005; 93306

== ENCOUNTER → 2020-06-17 | Outpatient (CLI) | payer BC ==
[2020-06-17 09:36] LABS: African American GFR (CKD) >90 (>60 ml/min/1.73 sqM); Blood Urea Nitrogen 13 mg/dL (9-20); Non-African American GFR(CKD) >90 (>60 ml/min/1.73 sqM)
--- NOTE | 2020-06-17 10:51 | CT ---
EXAMINATION TYPE: CT ChestAbdPelvis w con DATE OF EXAM: 06/17/2020 COMPARISON: 12/02/2019 HISTORY: colon CA CT DLP: 2276.1 mGycm CONTRAST: CT scan of the chest, abdomen and pelvis is performed with Oral Contrast and with IV Contrast, patien t injected with 100 mL of Isovue 300. CT Chest: LUNGS: The lungs are clear and free of infiltrate or atelectasis. No pulmonary nodule or mass is det ected. No pleural effusion or CT evidence of interstitial lung disease. MEDIASTINUM: Thoracic aorta is of normal caliber. The heart is not enlarged. No evidence for media stinal mass or adenopathy. HILAR STRUCTURES: No evidence for mass. No hilar adenopathy is appreciated. OTHER: No significant abnormality. CONTRAST CT ABDOMEN AND PELVIS FINDINGS: LIVER/GB: No calcified gallstones. There is mild hepatic steatosis. No space occupying hepatic les ion. Biliary tree is of normal caliber. PANCREAS: No inflammation. No distinct mass. SPLEEN: No splenic enlargement. No lesion seen. ADRENALS: No nodule. No thickening. KIDNEYS/BLADDER: No hydronephrosis. No nephrolithiasis. No distinct renal mass. BOWEL: Normal appendix. Postoperative resection of previously noted mass in the sigmoid colon. No ev idence for recurrent mass at this time. Remainder of the colon and small bowel are unremarkable. Norm al bowel caliber. No inflammation. GENITAL ORGANS: No gross abnormality. LYMPH NODES: No greater than 1cm abdominal or pelvic lymph nodes are appreciated. AORTA: No significant abnormality. OSSEOUS STRUCTURES: No significant abnormality is seen. OTHER: No significant additional abnormality is seen. IMPRESSION: 1. Interval surgical resection of sigmoid mass without evidence for tumor recurrence or metastatic di sease.
== END | disposition home or self-care (01) ==
LOC: RADCTMAIN 08:53
PROVIDERS: ATTEND Internal Medicine Hematology & Oncology
DX: C18.7 Malignant neoplasm of sigmoid colon (principal)
CPT/HCPCS: 82565; 84520; 71260; 74177; 36415; Q9967

== ENCOUNTER 2022-07-05 10:00 | Emergency (ER) | payer MEDICARE ==
[2022-07-05 10:06] VITALS: RESP 20; TEMP 98.3
[2022-07-05] MEDS ORDERED: KETOROLAC 15 MG/ML 1 ML VIAL IVP STA (10:14)
[2022-07-05 10:55] LABS: Basophils # (A) 0.1 k/uL (0-0.2); Basophils % (A) 1 %; Eosinophils # (A) 0.2 k/uL (0-0.7); Eosinophils % (A) 3 %; HCT 47.7 % (39.0-53.0); HGB 16.4 gm/dL (13.0-17.5); Lymphocytes # (A) 1.5 k/uL (1.0-4.8); Lymphocytes % (A) 25 %; MCH 29.4 pg (25.0-35.0); MCHC 34.4 g/dL (31.0-37.0); MCV 85.5 fL (80.0-100.0); Mean Platelet Volume 8.1; Monocytes # (A) 0.3 k/uL (0-1.0); Monocytes % (A) 5 %; Neutrophils % (A) 65 %; Platelet Count 210 k/uL (150-450); RBC 5.58 m/uL (4.30-5.90); RDW 12.3 % (11.5-15.5); WBC 6.1 k/uL (3.8-10.6)
[2022-07-05 11:04] LABS: ALT 30 U/L (4-49); AST 38 U/L (17-59); African American GFR (CKD) >90 (>60 ml/min/1.73 sqM); Albumin 4.7 g/dL (3.5-5.0); Alkaline Phosphatase 70 U/L (38-126); Amylase 80 U/L (30-110); Anion Gap 10 mmol/L; Blood Urea Nitrogen 15 mg/dL (9-20); Carbon Dioxide 26 mmol/L (22-30); Chloride 103 mmol/L (98-107); Glucose 123 mg/dL (74-99); Lipase 137 U/L (23-300); Non-African American GFR(CKD) >90 (>60 ml/min/1.73 sqM); Potassium 4.4 mmol/L (3.5-5.1); Sodium 139 mmol/L (137-145); Total Bilirubin 0.8 mg/dL (0.2-1.3); Total Protein 7.2 g/dL (6.3-8.2)
--- NOTE | 2022-07-05 11:04 | ED ---
Abdominal Pain HPI - General Chief Complaint: Abdominal Pain Stated Complaint: poss appendix Time Seen by Provider: 07/05/22 10:07 Source: patient, family, RN notes reviewed Mode of arrival: ambulatory Limitations: no limitations - History of Present Illness Initial Comments: This is a 67-year-old male who presents to the emergency department for right l ower quadrant pain. States that this been present for the last 3 days and seems to be worsening. Believes that he does have some radiation of pain into the back. Denies any nausea or vomiting. States that the pain worsens whenever he moves the right leg or tries to bear down. He is concerned that this may be related to his appendix. Denies any history of kidney stones, blood in the urine, or burning with urination. Also denies any changes in his bowel habits, such as diarrhea or constipation. Denies any fevers, chills, sore throat, cough, dyspnea, chest pain, palpitations, nausea, vomiting, diarrhea, back pain, or headaches. MD Complaint: abdominal pain Onset/Timin -: days(s) Location: RLQ Radiation: back Consistency: constant Associated Symptoms: denies other symptoms - Related Data Home Medications Medication Instructions Recorded Confirmed Ascorbic Acid [Vitamin C] 500 mg PO AC-BID 12/17/19 07/05/22 Calcium Lactate 1 tab PO AC-BID 12/17/19 07/05/22 L.acidoph,Paracasei, B.lactis 1 cap PO AC-BID 12/17/19 07/05/22 [Probiotic] Zinc Aspartate 15 mg PO DAILY 12/17/19 07/05/22 Mediherb Vitanox Tablets 1 tab PO AC-BID 07/05/22 07/05/22 Multivit-Min/FA/Lycopen/Lutein 1 tab PO AC-BID 07/05/22 07/05/22 [Centrum Silver Men Tablet] Previous Rx's Medication Instructions Recorded Amoxic-Pot Clav 875-125Mg 1 tab PO BID 7 Days #14 tab 07/05/22 [Augmentin 875-125] predniSONE 50 mg PO QAM 5 Days #5 tablet 07/05/22 Allergies Allergy/AdvReac Type Severity Reaction Status Date / Time Milk Containing Products AdvReac Unknown Sinus Verified 07/05/22 13:07 [Dairy] Congestion, Difficulty Breathing Review of Systems ROS Statement: Those systems with pertinent positive or pertinent negative responses have been documented in the HPI. ROS Other: All systems not noted in ROS Statement are negative. Past Medical History Past Medical History: Cancer Additional Past Medical History / Comment(s): COLON CANCER, VEGETARIAN DIET, STATES CONSTIPATION IN THE PAST WITH PAIN MEDICATION., MONITORS THYROID ., ELEVA YAMILE PSA. Patient had been doing regular colostomy screening with known family history of colon cancer father and sister History of Any Multi-Drug Resistant Organisms: None Reported Past Surgical History: Hernia Repair Additional Past Surgical History / Comment(s): DOUBLE INGUINAL HERNIA (2011) Past Anesthesia/Blood Transfusion Reactions: No Reported Reaction Past Psychological History: No Psychological Hx Reported Smoking Status: Never smoker Past Alcohol Use History: None Reported Past Drug Use History: None Reported - Past Family History Father Family Medical History: Cancer Additional Family Medical History / Comment(s): FROM COLON CANCER AT AGE 49. General Exam Limitations: no limitations General appearance: alert, in no apparent distress Head exam: Present: atraumatic, normocephalic, normal inspection Respiratory exam: Present: normal lung sounds bilaterally. Absent: respiratory distress, wheezes, rales, rhonchi, stridor Cardiovascular Exam: Present: regular rate, normal rhythm, normal heart sounds. Absent: systolic murmur, diastolic murmur, rubs, gallop, clicks GI/Abdominal exam: Present: soft, tenderness (RLQ), hypoactive bowel sounds. Absent: distended Expanded GI/Abdominal exam: Present: psoas sign, obturator sign, tenderness at [place]'s Point Neurological exam: Present: alert, oriented X3, CN II-XII intact Psychiatric exam: Present: normal affect, normal mood Skin exam: Present: warm, dry, intact, normal color. Absent: rash Course Vital Signs 07/05/22 07/05/22 10:03 14:23 Temperature 98.3 F Pulse Rate 95 87 Respiratory 20 20 Rate Blood Pressure 177/107 168/89 O2 Sat by Pulse 97 99 Oximetry Medical Decision Making - Medical Decision Making This is a 67-year-old male who presents to the emergency department for right lower quadrant pain. Lab work obtained, which was nonactionable. Computed tomography scan of the abdomen and pelvis revealed no acute pathologies or findings to account for the patient's symptoms. This was discussed with the patient, who states that he went to the chiropractor a week ago, and was told that his ileocecal valve was open. Patient states that he is concerned that he may have some sort of infection in his abdomen or inflammatory process causing his symptoms. Advised the patient that this will often appear on blood work or the imaging, which was not the case. However, if this is a concern between him and his chiropractor, I am willing to treat him with a course of antibiotics. Prescription for Augmentin provided. He was also given a prescription for prednisone to help with associated inflammation, which will also help in the event this is a musculoskeletal injury. He is instructed to avoid moao-nbq-agqjevj anti-inflammatories while taking the prednisone. I also recommended capsaicin cream. Return precautions reviewed in depth, the patient is instructed to return to the emergency department with any new, worsening, or concerning symptoms. Patient verbalized understanding. This case was discussed in detail with the attending ED physician. Presentation, findings, and treatment plan discussed in detail as well. - Lab Data Result diagrams: 07/05/22 10:50 07/05/22 10:50 Lab Results 07/05/22 07/05/22 07/05/22 Range/Units 10:50 10:50 10:50 WBC 6.1 (3.8-10.6) k/uL RBC 5.58 (4.30-5.90) m/uL Hgb 16.4 (13.0-17.5) gm/dL Hct 47.7 (39.0-53.0) % MCV 85.5 (80.0-100.0) fL MCH 29.4 (25.0-35.0) pg MCHC 34.4 (31.0-37.0) g/dL RDW 12.3 (11.5-15.5) % Plt Count 210 (150-450) k/uL MPV 8.1 Neutrophils % 65 % Lymphocytes % 25 % Monocytes % 5 % Eosinophils % 3 % Basophils % 1 % Neutrophils # 4.0 (1.3-7.7) k/uL Lymphocytes # 1.5 (1.0-4.8) k/uL Monocytes # 0.3 (0-1.0) k/uL Eosinophils # 0.2 (0-0.7) k/uL Basophils # 0.1 (0-0.2) k/uL ESR 2 (0-15) mm/hr Sodium 139 (137-145) mmol/L Potassium 4.4 (3.5-5.1) mmol/L Chloride 103 (98-107) mmol/L Carbon Dioxide 26 (22-30) mmol/L Anion Gap 10 mmol/L BUN 15 (9-20) mg/dL Creatinine 0.77 (0.66-1.25) mg/dL Est GFR (CKD-EPI)AfAm >90 (>60 ml/min/1.73 sqM) Est GFR (CKD-EPI)NonAf >90 (>60 ml/min/1.73 sqM) Glucose 123 H (74-99) mg/dL Calcium 9.0 (8.4-10.2) mg/dL Total Bilirubin 0.8 (0.2-1.3) mg/dL AST 38 (17-59) U/L ALT 30 (4-49) U/L Alkaline Phosphatase 70 (38-126) U/L C-Reactive Protein (<1.0) mg/dL Total Protein 7.2 (6.3-8.2) g/dL Albumin 4.7 (3.5-5.0) g/dL Amylase 80 (30-110) U/L Lipase 137 (23-300) U/L Urine Color Urine Appearance (Clear) Urine pH (5.0-8.0) Ur Specific [place] (1.001-1.035) Urine Protein (Negative) Urine Glucose (UA) (Negative) Urine Ketones (Negative) Urine Blood (Negative) Urine Nitrite (Negative) Urine Bilirubin (Negative) Urine Urobilinogen (<2.0) mg/dL Ur Leukocyte Esterase (Negative) 07/05/22 07/05/22 Range/Units 10:50 11:50 WBC (3.8-10.6) k/uL RBC (4.30-5.90) m/uL Hgb (13.0-17.5) gm/dL Hct (39.0-53.0) % MCV (80.0-100.0) fL MCH (25.0-35.0) pg MCHC (31.0-37.0) g/dL RDW (11.5-15.5) % Plt Count (150-450) k/uL MPV Neutrophils % % Lymphocytes % % Monocytes % % Eosinophils % % Basophils % % Neutrophils # (1.3-7.7) k/uL Lymphocytes # (1.0-4.8) k/uL Monocytes # (0-1.0) k/uL Eosinophils # (0-0.7) k/uL Basophils # (0-0.2) k/uL ESR (0-15) mm/hr Sodium (137-145) mmol/L Potassium (3.5-5.1) mmol/L Chloride (98-107) mmol/L Carbon Dioxide (22-30) mmol/L Anion Gap mmol/L BUN (9-20) mg/dL Creatinine (0.66-1.25) mg/dL Est GFR (CKD-EPI)AfAm (>60 ml/min/1.73 sqM) Est GFR (CKD-EPI)NonAf (>60 ml/min/1.73 sqM) Glucose (74-99) mg/dL Calcium (8.4-10.2) mg/dL Total Bilirubin (0.2-1.3) mg/dL AST (17-59) U/L ALT (4-49) U/L Alkaline Phosphatase (38-126) U/L C-Reactive Protein <0.5 (<1.0) mg/dL Total Protein (6.3-8.2) g/dL Albumin (3.5-5.0) g/dL Amylase (30-110) U/L Lipase (23-300) U/L Urine Color Colorless Urine Appearance Clear (Clear) Urine pH 7.5 (5.0-8.0) Ur Specific [place] 1.011 (1.001-1.035) Urine Protein Negative (Negative) Urine Glucose (UA) Negative (Negative) Urine Ketones Negative (Negative) Urine Blood Negative (Negative) Urine Nitrite Negative (Negative) Urine Bilirubin Negative (Negative) Urine Urobilinogen <2.0 (<2.0) mg/dL Ur Leukocyte Esterase Negative (Negative) - Radiology Data Radiology results: report reviewed, image reviewed Disposition Clinical Impression: RLQ abdominal pain Disposition: HOME SELF-CARE Instructions (If sedation given, give patient instructions): Abdominal Pain (ED) Additional Instructions: Return to the emergency department with any new, worsening, or concerning symptoms. Take the prednisone as prescribed for 5 days, do not take this with other vkmf-tzs-marfika anti-inflammatories such as Aleve, you may take this with Tylenol. Take the antibiotic as prescribed for 7 days. You can also try over the counter capsaicin cream. Follow up with Dr. Vasquez as instructed. Prescriptions: Amoxic-Pot Clav 875-125Mg [Augmentin 875-125] 1 tab PO BID 7 Days #14 tab predniSONE 50 mg PO QAM 5 Days #5 tablet Is patient prescribed a controlled substance at d/c from ED?: No Referrals: William Vasquez MD [Primary Care Provider] - 1-2 days
--- NOTE | 2022-07-05 11:43 | CT ---
EXAMINATION TYPE: CT abdomen pelvis w con DATE OF EXAM: 07/05/2022 COMPARISON: 06/17/2020 HISTORY: RLQ PAIN CT DLP: 1670.9 mGycm CONTRAST: CT scan of the abdomen and pelvis is performed without Oral Contrast and with IV Contrast, patient in jected with 100 mL of Isovue 300. FINDINGS: LUNG BASES-: No visible nodule. No infiltrate. LIVER/GB: No calcified gallstones. No space occupying hepatic lesion. Biliary tree is of normal ca liber. PANCREAS: No inflammation. No distinct mass. SPLEEN: No splenic enlargement. No lesion seen. ADRENALS: No nodule. No thickening. KIDNEYS/BLADDER: No hydronephrosis. No nephrolithiasis. No distinct renal mass. Urinary bladder g rossly unremarkable. BOWEL: Normal appendix. Normal bowel caliber. No inflammation. Sigmoid diverticulosis without diver ticulitis. GENITAL ORGANS: State gland enlargement. LYMPH NODES: No greater than 1cm abdominal or pelvic lymph nodes are appreciated. AORTA: No significant abnormality. OSSEOUS STRUCTURES: Multilevel degenerative disc disease noted. OTHER: Fat-containing umbilical hernia. Containing inguinal hernias noted. IMPRESSION: 1. No acute intra-abdominal process seen.
[2022-07-05 11:53] LABS: Appearance,Urine Clear (Clear); Bilirubin,Urine Negative (Negative); Blood,Urine Negative (Negative); Color,Urine Colorless; Glucose,Urine (UA) Negative (Negative); Ketones,Urine Negative (Negative); Leukocyte Esterase,Urine Negative (Negative); Nitrite,Urine Negative (Negative); PH, Urine 7.5 (5.0-8.0); Protein,Urine Negative (Negative); Specific Gravity,Urine 1.011 (1.001-1.035); Urobilinogen,Urine <2.0 mg/dL (<2.0)
[2022-07-05 14:26] VITALS: BP 168/89; PULSE 87
== END 2022-07-05 14:26 | disposition home or self-care (01) ==
LOC: EC 10:00
DX: R10.31 Right lower quadrant pain (principal); Z91.011 Allergy to milk products
CPT/HCPCS: 36415; 80053; 85652; 82150; 83690; 85025; 86140; 81003; 74177; 99284; 96374; J1885; Q9967

== ENCOUNTER 2022-07-19 10:13 | Emergency (ER) | payer MEDICARE ==
[2022-07-19 10:56] VITALS: BP 133/80; PULSE 94; RESP 20; TEMP 97.9
[2022-07-19 11:22] LABS: Basophils # (A) 0.1 k/uL (0-0.2); Basophils % (A) 1 %; Eosinophils # (A) 0.2 k/uL (0-0.7); Eosinophils % (A) 2 %; HCT 47.4 % (39.0-53.0); HGB 16.7 gm/dL (13.0-17.5); Lymphocytes # (A) 2.4 k/uL (1.0-4.8); Lymphocytes % (A) 28 %; MCH 29.8 pg (25.0-35.0); MCHC 35.2 g/dL (31.0-37.0); MCV 84.7 fL (80.0-100.0); Mean Platelet Volume 8.3; Monocytes # (A) 0.5 k/uL (0-1.0); Monocytes % (A) 6 %; Neutrophils # (A) 5.4 k/uL (1.3-7.7); Neutrophils % (A) 61 %; Platelet Count 219 k/uL (150-450); RBC 5.59 m/uL (4.30-5.90); RDW 12.6 % (11.5-15.5); WBC 8.9 k/uL (3.8-10.6)
[2022-07-19 11:32] LABS: ALT 37 U/L (4-49); AST 54 U/L (17-59); African American GFR (CKD) >90 (>60 ml/min/1.73 sqM); Albumin 4.7 g/dL (3.5-5.0); Alkaline Phosphatase 69 U/L (38-126); Amylase 70 U/L (30-110); Anion Gap 13 mmol/L; Blood Urea Nitrogen 12 mg/dL (9-20); Calcium 9.1 mg/dL (8.4-10.2); Carbon Dioxide 24 mmol/L (22-30); Chloride 101 mmol/L (98-107); Glucose 122 mg/dL (74-99); Lipase 133 U/L (23-300); Non-African American GFR(CKD) >90 (>60 ml/min/1.73 sqM); Sodium 138 mmol/L (137-145); Total Bilirubin 0.7 mg/dL (0.2-1.3)
--- NOTE | 2022-07-19 15:01 | CT ---
EXAMINATION: CT ABDOMEN AND PELVIS WITH IV CONTRAST DATE OF EXAMINATION: 07/19/2022. COMPARISON: None available. INDICATION: Right lower quadrant pain. PROCEDURE: Axial CT of the abdomen and pelvis was performed with contrast and sagittal and coronal reformatted images were performed. CT dose lowering techniques were used, to include: automated expos ure control, adjustment for patient size, and/or use of iterative reconstruction. There are monitors of Isovue 300 was given intravenously. FINDINGS: LOWER CHEST : The visualized lung bases are clear. There are no pleural or pericardial effusions. ABDOMEN: Liver and Biliary system: Normal. Adrenal glands: Normal. Kidneys and ureters: Normal. Spleen: Normal. Pancreas: Normal. Gallbladder: Normal. Lymph nodes, Peritoneum and mesentery: There is no mesenteric or retroperitoneal lymphadenopathy. Gastrointestinal tract: There are no dilated loops of bowel or free intraperitoneal air. The appe ndix is normal. There is scattered colonic diverticulosis without evidence of diverticulitis. There i s a prior sigmoid colonic anastomosis. Aorta/IVC: No aortic aneurysm. IVC normal. Abdominal wall: Normal. PELVIS: Fluid: There is no free fluid in the pelvis. Lymph Nodes: There is no pelvic or inguinal lymphadenopathy.. Urinary bladder: Normal. BONES: There are no osseous destructive lesions.. ADDITIONAL SIGNIFICANT FINDINGS: There is moderately enlarged.. IMPRESSION: 1. No acute process within the abdomen or pelvis. 2. Diverticulosis without evidence of diverticulitis. 3. Prostamegaly.
--- NOTE | 2022-07-19 15:32 | ED ---
Abdominal Pain HPI - General Chief Complaint: Abdominal Pain Stated Complaint: Rt. side pain Time Seen by Provider: 07/19/22 12:11 Source: patient Mode of arrival: ambulatory Limitations: no limitations - History of Present Illness Initial Comments: 67-year-old male presents emergency department with right lower quadrant pain. States that it's been going on for 3 weeks. He has been seen by a chiropractor for his symptoms. 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 Surgery was in 2019 and patient has not had any problems since. He called Dr. Larson office who recommended they come into the emergency department for evaluation. He denies nausea, vomiting. No changes in his bowel or bladder habits. Last bowel movement was yesterday. No black or bloody stools. Denies fevers. No other alleviating, precipitating or modifying factors - Related Data Home Medications Medication Instructions Recorded Confirmed Ascorbic Acid [Vitamin C] 500 mg PO AC-BID 12/17/19 07/05/22 Calcium Lactate 1 tab PO AC-BID 12/17/19 07/05/22 L.acidoph,Paracasei, B.lactis 1 cap PO AC-BID 12/17/19 07/05/22 [Probiotic] Zinc Aspartate 15 mg PO DAILY 12/17/19 07/05/22 Mediherb Vitanox Tablets 1 tab PO AC-BID 07/05/22 07/05/22 Multivit-Min/FA/Lycopen/Lutein 1 tab PO AC-BID 07/05/22 07/05/22 [Centrum Silver Men Tablet] Previous Rx's Medication Instructions Recorded Amoxic-Pot Clav 875-125Mg 1 tab PO BID 7 Days #14 tab 07/05/22 [Augmentin 875-125] predniSONE 50 mg PO QAM 5 Days #5 tablet 07/05/22 Allergies Allergy/AdvReac Type Severity Reaction Status Date / Time Milk Containing Products AdvReac Unknown Sinus Verified 07/19/22 10:56 [Dairy] Congestion, Difficulty Breathing Review of Systems ROS Statement: Those systems with pertinent positive or pertinent negative responses have been documented in the HPI. ROS Other: All systems not noted in ROS Statement are negative. Past Medical History Past Medical History: Cancer Additional Past Medical History / Comment(s): COLON CANCER, VEGETARIAN DIET, STATES CONSTIPATION IN THE PAST WITH PAIN MEDICATION., MONITORS THYROID ., ELEVATED PSA. Patient had been doing regular colostomy screening with known family history of colon cancer father and sister History of Any Multi-Drug Resistant Organisms: None Reported Past Surgical History: Hernia Repair Additional Past Surgical History / Comment(s): DOUBLE INGUINAL HERNIA (2011) Past Anesthesia/Blood Transfusion Reactions: No Reported Reaction Past Psychological History: No Psychological Hx Reported Smoking Status: Never smoker Past Alcohol Use History: None Reported Past Drug Use History: None Reported - Past Family History Father Family Medical History: Cancer Additional Family Medical History / Comment(s): FROM COLON CANCER AT AGE 49. General Exam Limitations: no limitations General appearance: alert, in no apparent distress Head exam: Present: atraumatic, normocephalic, normal inspection Eye exam: Present: normal appearance, PERRL, EOMI. Absent: scleral icterus, conjunctival injection, periorbital swelling ENT exam: Present: normal exam, mucous membranes moist Neck exam: Present: normal inspection. Absent: tenderness, meningismus, lymphadenopathy Respiratory exam: Present: normal lung sounds bilaterally. Absent: respiratory distress, wheezes, rales, rhonchi, stridor Cardiovascular Exam: Present: regular rate, normal rhythm, normal heart sounds. Absent: systolic murmur, diastolic murmur, rubs, gallop, clicks GI/Abdominal exam: Present: soft, tenderness (Right lower quadrant), normal bow el sounds. Absent: distended, guarding, rebound, rigid Extremities exam: Present: normal inspection, full ROM, normal capillary refill. Absent: tenderness, pedal edema, joint swelling, calf tenderness Back exam: Present: normal inspection Neurological exam: Present: alert, oriented X3, CN II-XII intact Psychiatric exam: Present: normal affect, normal mood Skin exam: Present: warm, dry, intact, normal color. Absent: rash Course Vital Signs 07/19/22 10:54 Temperature 97.9 F Pulse Rate 94 Respiratory 20 Rate Blood Pressure 133/80 O2 Sat by Pulse 99 Oximetry Medical Decision Making - Medical Decision Making Upon arrival patient is placed in the hallway 10. Laboratory studies had been previously obtained and the patient was in triage. They are within normal limits. Repeat CT of the abdomen is performed which demonstrates no acute process. No free fluid. Normal appendix. Results are discussed the patient. I also spoke with Dr. Conn. Patient is eager to leave. He is to follow-up with Dr. Conn in office next week. Return for any new or worsening symptoms. Alternate taking Motrin and Tylenol for pain. Patient was agreeable to the plan and discharged in stable condition - Lab Data Result diagrams: 07/19/22 11:06 07/19/22 11:06 Lab Results 07/19/22 07/19/22 07/19/22 Range/Units 11:06 11:06 11:06 WBC 8.9 (3.8-10.6) k/uL RBC 5.59 (4.30-5.90) m/uL Hgb 16.7 (13.0-17.5) gm/dL Hct 47.4 (39.0-53.0) % MCV 84.7 (80.0-100.0) fL MCH 29.8 (25.0-35.0) pg MCHC 35.2 (31.0-37.0) g/dL RDW 12.6 (11.5-15.5) % Plt Count 219 (150-450) k/uL MPV 8.3 Neutrophils % 61 % Lymphocytes % 28 % Monocytes % 6 % Eosinophils % 2 % Basophils % 1 % Neutrophils # 5.4 (1.3-7.7) k/uL Lymphocytes # 2.4 (1.0-4.8) k/uL Monocytes # 0.5 (0-1.0) k/uL Eosinophils # 0.2 (0-0.7) k/uL Basophils # 0.1 (0-0.2) k/uL Sodium 138 (137-145) mmol/L Potassium 4.0 (3.5-5.1) mmol/L Chloride 101 (98-107) mmol/L Carbon Dioxide 24 (22-30) mmol/L Anion Gap 13 mmol/L BUN 12 (9-20) mg/dL Creatinine 0.77 (0.66-1.25) mg/dL Est GFR (CKD-EPI)AfAm >90 (>60 ml/min/1.73 sqM) Est GFR (CKD-EPI)NonAf >90 (>60 ml/min/1.73 sqM) Glucose 122 H (74-99) mg/dL Plasma Lactic Acid Josh 1.4 (0.7-2.0) mmol/L Calcium 9.1 (8.4-10.2) mg/dL Total Bilirubin 0.7 (0.2-1.3) mg/dL AST 54 (17-59) U/L ALT 37 (4-49) U/L Alkaline Phosphatase 69 (38-126) U/L Total Protein 7.0 (6.3-8.2) g/dL Albumin 4.7 (3.5-5.0) g/dL Amylase 70 (30-110) U/L Lipase 133 (23-300) U/L Disposition Clinical Impression: RLQ abdominal pain Disposition: HOME SELF-CARE Condition: Stable Instructions (If sedation given, give patient instructions): Abdominal Pain (ED) Additional Instructions: Make an appointment with Dr. Conn next week. Return for any new or worsening symptoms. Is patient prescribed a controlled substance at d/c from ED?: No Referrals: William Vasquez MD [Primary Care Provider] - 1-2 days Giancarlo Conn MD [Medical Doctor] - 1-2 days Time of Disposition: 15:32
== END 2022-07-19 15:59 | disposition home or self-care (01) ==
LOC: EC 10:13
DX: R10.31 Right lower quadrant pain (principal); Z91.011 Allergy to milk products
CPT/HCPCS: 36415; 80053; 82150; 83605; 83690; 85025; 74177; 99284; Q9967

== ENCOUNTER → 2023-09-02 | Outpatient (CLI) | payer MEDICARE ==
--- NOTE | 2023-09-02 15:06 | XR ---
EXAMINATION TYPE: XR thoracic spine complete DATE OF EXAM: 09/02/2023 COMPARISON: NONE HISTORY: Pain TECHNIQUE: 3 views submitted FINDINGS: Alignment is anatomic. There is no compression deformities. There is multilevel moderate hypertrophi c and degenerative changes. There is diffuse osteopenia.. IMPRESSION: 1. Multilevel diffuse osteopenia with hypertrophic and degenerative change of the spine..
--- NOTE | 2023-09-02 15:13 | XR ---
EXAMINATION TYPE: XR cervical spine limited DATE OF EXAM: 09/02/2023 COMPARISON: NONE HISTORY: pain TECHNIQUE: Three views are submitted. FINDINGS: The odontoid is intact. There are no compression deformities. The prevertebral soft tissue structur es are within normal limits. Hypertrophic and degenerative change of the spine. Most marked findings at C5-6 and C6-C7. Anterior osteophytes result in fusion at C4-C5. Multilevel facet arthropathy. IMPRESSION: 1. Multilevel degenerative disc disease and hypertrophic spurring. Most marked at C5-6 and C6-C7.
== END | disposition home or self-care (01) ==
LOC: RADXRMAIN 14:32
PROVIDERS: ATTEND Family Medicine
DX: M50.122 Cervical disc disorder at C5-C6 level with radiculopathy (principal); M50.123 Cervical disc disorder at C6-C7 level with radiculopathy; M47.22 Other spondylosis with radiculopathy, cervical region; M85.88 Other specified disorders of bone density and structure, other site; M51.14 Intervertebral disc disorders with radiculopathy, thoracic region
CPT/HCPCS: 72040; 72072